=== PATIENT | female | born 1955 | race African-American/Black ===

== ENCOUNTER 2019-01-19 21:46 | Emergency (ER) | payer OTHER ==
[~2019-01-19] VITALS: Ht 157.5 cm; Wt 77.6 kg
[2019-01-19 22:33] LABS: ABSOLUTE NEUTROPHILS 4.8 thou/uL (1.4-8.2); BASOPHILS 0.9 % (0.0-2.0); EOSINOPHILS 2.2 % (0.0-3.0); HEMATOCRIT 33.5 % (37.0-47.0); HEMOGLOBIN 10.9 gm/dL (12.0-15.0); LYMPHOCYTES 33.5 % (24.0-44.0); MCH 26.7 pg (26.0-34.0); MCHC 32.6 g/dL (28.0-37.0); MCV 81.8 fL (80.0-100.0); MONOCYTES 9.1 % (1.0-8.0); PLATELET COUNT 209 thou/uL (150-400); POLYS 54.3 % (36.0-66.0); RBC 4.09 mil/uL (4.20-5.00); RDW 16.7 % (10.5-14.5); WBC 8.8 thou/uL (4.0-11.0)
[2019-01-19 22:36] LABS: CALCIUM 9.4 mg/dL (8.5-10.1); CREATININE 1.7 mg/dL (0.6-1.0); POTASSIUM 4.9 mmol/L (3.5-5.1)
[2019-01-20] MEDS ORDERED: NORCO 5-325 TA1 EAC1 PO (00:25)
[2019-01-20 00:50] VITALS: BP 187/64
--- NOTE | 2019-01-20 09:51 | EKG ---
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
== END 2019-01-20 00:50 | disposition home or self-care (01) ==
LOC: ER 21:46
PROVIDERS: Emergency Medicine
DX: M25.512 Pain in left shoulder (principal); R22.32 Localized swelling, mass and lump, left upper limb; E11.9 Type 2 diabetes mellitus without complications; M79.7 Fibromyalgia; F17.210 Nicotine dependence, cigarettes, uncomplicated; Z90.710 Acquired absence of both cervix and uterus; Z90.49 Acquired absence of other specified parts of digestive tract

== ENCOUNTER 2019-01-23 00:10 | Emergency (ER) | payer OTHER ==
[~2019-01-23] VITALS: Ht 157.5 cm; Wt 77.1 kg
[~2019-01-23 00:10] MED LIST: NORCO 5-325 TA1 EAC1 PO
[2019-01-23] MEDS ORDERED: LORCET 5-325 M1 EACH PO (00:33)
[2019-01-23] MEDS ORDERED: PREGABALIN50 MG PO (00:33)
[2019-01-23] MEDS ORDERED: ACTOS 30 MG TAB30 M1 PO (00:34)
[2019-01-23] MEDS ORDERED: ACETAMINOPHEN650 M1 (00:35)
[2019-01-23] MEDS ORDERED: TRADJENTA5 MG (00:36)
[2019-01-23] MEDS ORDERED: NORVASC 2.5 MG2.5 M1 PO (00:37)
[2019-01-23] MEDS ORDERED: COUMADIN 5 MG TA5 M1 PO (00:37)
[2019-01-23] MEDS ORDERED: PROTONIX40 M4 PO (00:38)
[2019-01-23] MEDS ORDERED: ROSUVASTATIN CA20 MG PO (00:38)
[2019-01-23] MEDS ORDERED: SYNTHROID112 MC1 PO (00:39)
[2019-01-23] MEDS ORDERED: METOPROLOL SUCC50 MG PO (00:39)
[2019-01-23] MEDS ORDERED: ZANTAC 150MG T150 M1 PO (00:39)
[2019-01-23] MEDS ORDERED: COZAAR 25 MG TA25 M1 PO (00:40)
[2019-01-23] MEDS ORDERED: LORATIDINE 10 M10 M1 PO (00:43)
[2019-01-23 02:21] LABS: INR 1.7; PROTIME 18.1 Seconds (9.3-11.4)
[2019-01-23] MEDS ORDERED: TRAMADOL 50 MG50 MG PO (04:10)
[2019-01-23] MEDS ORDERED: NORFLEX100 MG PO (04:10)
[2019-01-23 04:26] VITALS: BP 150/63
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
== END 2019-01-23 04:27 | disposition home or self-care (01) ==
LOC: ER 00:10
PROVIDERS: Emergency Medicine
DX: M43.6 Torticollis (principal); M79.89 Other specified soft tissue disorders; E11.9 Type 2 diabetes mellitus without complications; F17.210 Nicotine dependence, cigarettes, uncomplicated; Z90.89 Acquired absence of other organs; Z90.49 Acquired absence of other specified parts of digestive tract; Z90.710 Acquired absence of both cervix and uterus; Z88.6 Allergy status to analgesic agent; Z88.8 Allergy status to other drugs, medicaments and biological substances